=== PATIENT | female | born 1965 | race Native Hawaiian/Other Pacific Islander ===

== ENCOUNTER 2017-07-13 13:20 | Outpatient (CLI) | payer OTHER | END 2017-07-13 14:40 | disposition home or self-care (01) | LOC: MAMMO 13:20 | DX: R92.2 Inconclusive mammogram (principal) ==

== ENCOUNTER 2017-12-14 14:25 | Emergency (ER) | payer OTHER ==
[~2017-12-14] VITALS: Ht 162.6 cm; Wt 99.8 kg
[2017-12-14 15:11] LABS: PLATELET COUNT 366 K/uL (152-353)
[2017-12-14 15:20] LABS: POTASSIUM 3.7 mmol/L (3.6-5.2); SODIUM 131 mmol/L (136-145)
== END 2017-12-14 16:48 | disposition home or self-care (01) ==
LOC: ED 14:25
PROVIDERS: Family Medicine
DX: R07.89 Other chest pain (principal); T50.2X5A Adverse effect of carbonic-anhydrase inhibitors, benzothiadiazides and other diuretics, initial encounter; I10 Essential (primary) hypertension
CPT/HCPCS: 36415; 80053; 83735; 84100; 84439; 84443; 84484; 85027; 93005; 99283

== ENCOUNTER 2017-12-22 14:02 | Outpatient (CLI) | payer OTHER | END 2017-12-22 22:57 | disposition home or self-care (01) | LOC: RAD 14:02 | DX: Z12.31 Encounter for screening mammogram for malignant neoplasm of breast (principal) ==

== ENCOUNTER 2018-01-20 11:57 | Outpatient (CLI) | payer OTHER | END 2018-01-20 21:49 | disposition home or self-care (01) | LOC: LABW 11:57 | DX: N39.0 Urinary tract infection, site not specified (principal) | CPT/HCPCS: 81000; 87077; 87086; 87088; 87186 ==

== ENCOUNTER 2018-06-07 08:52 | Outpatient (CLI) | payer OTHER ==
[2018-06-07 09:20] LABS: PLATELET COUNT 308 K/uL (152-353)
[2018-06-07 09:56] LABS: POTASSIUM 4.6 mmol/L (3.6-5.2); SODIUM 142 mmol/L (136-145)
== END 2018-06-07 23:21 | disposition home or self-care (01) ==
LOC: LABW 08:52
PROVIDERS: Internal Medicine
DX: Z79.899 Other long term (current) drug therapy (principal); E78.5 Hyperlipidemia, unspecified; Z86.39 Personal history of other endocrine, nutritional and metabolic disease
CPT/HCPCS: 36415; 80053; 80061; 82550; 84439; 84443; 85027; 86140

== ENCOUNTER 2019-04-26 11:05 | Outpatient (CLI) | payer OTHER | END 2019-04-26 23:44 | disposition home or self-care (01) | LOC: MAMMO 11:05 | DX: Z12.31 Encounter for screening mammogram for malignant neoplasm of breast (principal) ==

== ENCOUNTER 2019-05-17 13:09 | Outpatient (CLI) | payer OTHER | END 2019-05-17 23:59 | LOC: RAD 13:09 | DX: M25.521 Pain in right elbow (principal) ==

== ENCOUNTER 2020-02-21 11:32 | Outpatient (CLI) | payer OTHER | END 2020-02-21 21:48 | disposition home or self-care (01) | LOC: RAD 11:32 | DX: R05 Cough (principal) ==

== ENCOUNTER 2020-02-22 08:06 | Outpatient (CLI) | payer OTHER ==
[2020-02-22 09:06] LABS: POTASSIUM 3.7 mmol/L (3.6-5.2)
[2020-02-22 09:50] LABS: PLATELET COUNT 336 K/uL (152-353)
== END 2020-02-22 20:05 | disposition home or self-care (01) ==
LOC: LABW 08:06 → US 08:06 → LABW 20:05
PROVIDERS: Internal Medicine
DX: R79.89 Other specified abnormal findings of blood chemistry (principal); I10 Essential (primary) hypertension; E03.9 Hypothyroidism, unspecified
CPT/HCPCS: 36415; 80053; 80061; 81000; 82306; 84439; 84443; 85027

== ENCOUNTER 2020-04-17 10:40 | Outpatient (CLI) | payer OTHER | END 2020-04-17 19:07 | disposition home or self-care (01) | LOC: RESP 10:40 | DX: R00.2 Palpitations (principal) | CPT/HCPCS: 93005; 93225 ==

== ENCOUNTER 2020-05-09 08:26 | Outpatient (CLI) | payer OTHER | END 2020-05-09 19:39 | disposition home or self-care (01) | LOC: MAMMO 08:26 | DX: Z12.31 Encounter for screening mammogram for malignant neoplasm of breast (principal); Z13.820 Encounter for screening for osteoporosis; N95.8 Other specified menopausal and perimenopausal disorders ==

== ENCOUNTER 2020-08-06 16:09 | Outpatient (CLI) | payer OTHER | END 2020-08-06 19:13 | disposition home or self-care (01) | LOC: LABW 16:09 | PROVIDERS: ATTEND Internal Medicine | DX: Z20.828 Contact with and (suspected) exposure to other viral communicable diseases (principal) | CPT/HCPCS: 36415; 86769 ==

== ENCOUNTER 2020-08-27 15:50 | Outpatient (CLI) | payer OTHER | END 2020-08-27 22:19 | disposition home or self-care (01) | LOC: RAD 15:50 | PROVIDERS: ATTEND Internal Medicine | DX: M79.671 Pain in right foot (principal) ==

== ENCOUNTER 2020-10-22 12:36 | Outpatient (CLI) | payer OTHER | END 2020-10-22 20:50 | disposition home or self-care (01) | LOC: EMG 12:36 | PROVIDERS: ATTEND Podiatrist Foot & Ankle Surgery | DX: G57.51 Tarsal tunnel syndrome, right lower limb (principal); G57.71 Causalgia of right lower limb | CPT/HCPCS: 95861; 95912 ==

== ENCOUNTER → 2020-11-07 10:57 | Outpatient (CLI) | payer OTHER ==
[2020-11-07 11:22] LABS: PLATELET COUNT 384 K/uL (152-353)
[2020-11-07 11:44] LABS: POTASSIUM 3.2 mmol/L (3.6-5.2)
== END | disposition home or self-care (01) ==
LOC: LABW 10:57
PROVIDERS: ATTEND Internal Medicine Endocrinology, Diabetes & Metabolism
DX: E88.81 Metabolic syndrome and other insulin resistance (principal)
CPT/HCPCS: 36415; 80053; 80061; 81000; 82306; 82607; 83036; 84443; 85027

== ENCOUNTER 2020-11-14 08:56 | Outpatient (CLI) | payer OTHER | END 2020-11-14 21:40 | disposition home or self-care (01) | LOC: MRI 08:56 | PROVIDERS: ATTEND Podiatrist | DX: M72.2 Plantar fascial fibromatosis (principal) ==

== ENCOUNTER 2020-11-21 07:30 | Outpatient (CLI) | payer OTHER ==
[~2020-11-21] VITALS: Ht 165.1 cm; Wt 92.1 kg
== END 2020-11-21 19:23 | disposition home or self-care (01) ==
LOC: DIABINF 07:30 → AHCSDI 08:15 → DIABINF 08:15
PROVIDERS: ATTEND Internal Medicine Endocrinology, Diabetes & Metabolism
DX: E88.81 Metabolic syndrome and other insulin resistance (principal); E78.2 Mixed hyperlipidemia; K21.9 Gastro-esophageal reflux disease without esophagitis; I10 Essential (primary) hypertension; M89.8X6 Other specified disorders of bone, lower leg
CPT/HCPCS: 82948; 96365; 96366; 96521; 99205; J1718; J1815

== ENCOUNTER 2020-11-23 07:50 | Outpatient (CLI) | payer OTHER ==
[~2020-11-23] VITALS: Ht 165.1 cm; Wt 92.1 kg
== END 2020-11-23 20:51 | disposition home or self-care (01) ==
LOC: DIABINF 07:50 → AHCSDI 08:15 → DIABINF 08:15
PROVIDERS: ATTEND Internal Medicine Endocrinology, Diabetes & Metabolism
DX: E88.81 Metabolic syndrome and other insulin resistance (principal); E78.2 Mixed hyperlipidemia; K21.9 Gastro-esophageal reflux disease without esophagitis; I10 Essential (primary) hypertension; M89.8X6 Other specified disorders of bone, lower leg
CPT/HCPCS: 82948; 96365; 96366; 96521; 99214; J1718; J1815

== ENCOUNTER 2020-11-28 07:33 | Outpatient (CLI) | payer OTHER ==
[~2020-11-28] VITALS: Ht 165.1 cm; Wt 92.1 kg
== END 2020-11-28 21:03 | disposition home or self-care (01) ==
LOC: DIABINF 07:33 → AHCSDI 08:15 → DIABINF 21:03
PROVIDERS: ATTEND Internal Medicine Endocrinology, Diabetes & Metabolism
DX: E88.81 Metabolic syndrome and other insulin resistance (principal); E78.2 Mixed hyperlipidemia; K21.9 Gastro-esophageal reflux disease without esophagitis; I10 Essential (primary) hypertension; M89.8X6 Other specified disorders of bone, lower leg; E03.8 Other specified hypothyroidism; J30.2 Other seasonal allergic rhinitis
CPT/HCPCS: 82948; 96365; 96366; 96521; 99214; J1718; J1815

== ENCOUNTER 2020-11-30 07:46 | Outpatient (CLI) | payer OTHER ==
[~2020-11-30] VITALS: Ht 165.1 cm; Wt 92.1 kg
== END 2020-11-30 21:10 | disposition home or self-care (01) ==
LOC: DIABINF 07:46
PROVIDERS: ATTEND Internal Medicine Endocrinology, Diabetes & Metabolism
DX: E88.81 Metabolic syndrome and other insulin resistance (principal); E78.2 Mixed hyperlipidemia; K21.9 Gastro-esophageal reflux disease without esophagitis; I10 Essential (primary) hypertension; M89.8X6 Other specified disorders of bone, lower leg; E03.8 Other specified hypothyroidism; J30.2 Other seasonal allergic rhinitis
CPT/HCPCS: 82948; 96365; 96366; 96521; 99214; J1718; J1815

== ENCOUNTER 2020-12-05 07:22 | Outpatient (CLI) | payer OTHER ==
[~2020-12-05] VITALS: Ht 165.1 cm; Wt 92.1 kg
== END 2020-12-05 19:27 | disposition home or self-care (01) ==
LOC: DIABINF 07:22
PROVIDERS: ATTEND Internal Medicine Endocrinology, Diabetes & Metabolism
DX: E88.81 Metabolic syndrome and other insulin resistance (principal); E78.2 Mixed hyperlipidemia; K21.9 Gastro-esophageal reflux disease without esophagitis; I10 Essential (primary) hypertension; M89.8X6 Other specified disorders of bone, lower leg; E03.8 Other specified hypothyroidism; J30.2 Other seasonal allergic rhinitis
CPT/HCPCS: 82948; 96365; 96366; 96521; 99213; J1718; J1815

== ENCOUNTER 2020-12-12 07:48 | Outpatient (CLI) | payer OTHER ==
[~2020-12-12] VITALS: Ht 162.6 cm; Wt 92.1 kg
== END 2020-12-12 22:02 | disposition home or self-care (01) ==
LOC: DIABINF 07:48
PROVIDERS: ATTEND Internal Medicine Endocrinology, Diabetes & Metabolism
DX: E88.81 Metabolic syndrome and other insulin resistance (principal); E78.2 Mixed hyperlipidemia; K21.9 Gastro-esophageal reflux disease without esophagitis; I10 Essential (primary) hypertension; M89.8X6 Other specified disorders of bone, lower leg; E03.8 Other specified hypothyroidism; J30.1 Allergic rhinitis due to pollen
CPT/HCPCS: 82948; 96365; 96366; 96521; 99214; J1718; J1815

== ENCOUNTER 2020-12-19 07:45 | Outpatient (CLI) | payer OTHER ==
[~2020-12-19] VITALS: Ht 165.1 cm; Wt 92.1 kg
== END 2020-12-19 21:52 | disposition home or self-care (01) ==
LOC: DIABINF 07:45
PROVIDERS: ATTEND Internal Medicine Endocrinology, Diabetes & Metabolism
DX: E88.81 Metabolic syndrome and other insulin resistance (principal); R73.03 Prediabetes; E78.2 Mixed hyperlipidemia; K21.9 Gastro-esophageal reflux disease without esophagitis; I10 Essential (primary) hypertension; M79.671 Pain in right foot; E03.8 Other specified hypothyroidism; J30.2 Other seasonal allergic rhinitis
CPT/HCPCS: 82948; 96365; 96366; 96521; 99213; J1718; J1815

== ENCOUNTER 2020-12-26 07:56 | Outpatient (CLI) | payer OTHER ==
[~2020-12-26] VITALS: Ht 157.5 cm; Wt 91.6 kg
== END 2020-12-26 22:35 | disposition home or self-care (01) ==
LOC: DIABINF 07:56
PROVIDERS: ATTEND Internal Medicine Endocrinology, Diabetes & Metabolism
DX: E88.81 Metabolic syndrome and other insulin resistance (principal); R73.03 Prediabetes; E78.2 Mixed hyperlipidemia; K21.9 Gastro-esophageal reflux disease without esophagitis; I10 Essential (primary) hypertension; M79.671 Pain in right foot; E03.8 Other specified hypothyroidism; J30.2 Other seasonal allergic rhinitis
CPT/HCPCS: 82948; 96365; 96366; 96521; 99213; J1718; J1815

== ENCOUNTER 2021-01-02 07:44 | Outpatient (CLI) | payer OTHER ==
[~2021-01-02] VITALS: Ht 165.1 cm; Wt 92.1 kg
== END 2021-01-02 19:58 | disposition home or self-care (01) ==
LOC: DIABINF 07:44
PROVIDERS: ATTEND Internal Medicine Endocrinology, Diabetes & Metabolism
DX: E88.81 Metabolic syndrome and other insulin resistance (principal); R73.03 Prediabetes; E78.2 Mixed hyperlipidemia; K21.9 Gastro-esophageal reflux disease without esophagitis; I10 Essential (primary) hypertension; M79.671 Pain in right foot; E03.8 Other specified hypothyroidism; J30.2 Other seasonal allergic rhinitis
CPT/HCPCS: 82948; 96365; 96366; 96521; 99213; J1718; J1815

== ENCOUNTER 2021-01-16 07:37 | Outpatient (CLI) | payer OTHER ==
[~2021-01-16] VITALS: Ht 165.1 cm; Wt 92.1 kg
== END 2021-01-16 21:12 | disposition home or self-care (01) ==
LOC: DIABINF 07:37
PROVIDERS: ATTEND Internal Medicine Endocrinology, Diabetes & Metabolism
DX: E88.81 Metabolic syndrome and other insulin resistance (principal); R73.03 Prediabetes; E78.2 Mixed hyperlipidemia; K21.9 Gastro-esophageal reflux disease without esophagitis; I10 Essential (primary) hypertension; M79.671 Pain in right foot; E03.8 Other specified hypothyroidism; J30.2 Other seasonal allergic rhinitis
CPT/HCPCS: 82948; 96365; 96366; 96521; 99214; J1718; J1815

== ENCOUNTER 2021-02-01 07:31 | Outpatient (CLI) | payer OTHER ==
[~2021-02-01] VITALS: Ht 165.1 cm; Wt 92.1 kg
== END 2021-02-01 21:45 | disposition home or self-care (01) ==
LOC: DIABINF 07:31
PROVIDERS: ATTEND Nurse Practitioner
DX: E88.81 Metabolic syndrome and other insulin resistance (principal); R73.03 Prediabetes; E78.2 Mixed hyperlipidemia; K21.9 Gastro-esophageal reflux disease without esophagitis; I10 Essential (primary) hypertension; M79.671 Pain in right foot; E03.8 Other specified hypothyroidism; J30.2 Other seasonal allergic rhinitis
CPT/HCPCS: 82948; 96365; 96366; 96521; J1815; J1817

== ENCOUNTER 2021-02-06 12:29 | Outpatient (CLI) | payer OTHER ==
[~2021-02-06] VITALS: Ht 165.1 cm; Wt 92.1 kg
== END 2021-02-06 21:12 | disposition home or self-care (01) ==
LOC: DIABINF 12:29
PROVIDERS: ATTEND Nurse Practitioner
DX: E88.81 Metabolic syndrome and other insulin resistance (principal); R73.03 Prediabetes; E78.2 Mixed hyperlipidemia; K21.9 Gastro-esophageal reflux disease without esophagitis; I10 Essential (primary) hypertension; M79.671 Pain in right foot; E03.8 Other specified hypothyroidism; J30.2 Other seasonal allergic rhinitis; R23.4 Changes in skin texture
CPT/HCPCS: 82948; 96365; 96366; 96521; J1815; J1817

== ENCOUNTER 2021-06-27 13:52 | Outpatient (CLI) | payer OTHER | END 2021-06-27 18:00 | disposition home or self-care (01) | LOC: MRI 13:52 | PROVIDERS: ATTEND Orthopaedic Surgery | DX: M25.512 Pain in left shoulder (principal); M75.122 Complete rotator cuff tear or rupture of left shoulder, not specified as traumatic; M75.42 Impingement syndrome of left shoulder; M75.22 Bicipital tendinitis, left shoulder ==

== ENCOUNTER 2022-04-11 10:31 | Outpatient (CLI) | payer OTHER | END 2022-04-11 20:52 | disposition home or self-care (01) | LOC: MRI 10:31 | PROVIDERS: ATTEND Internal Medicine | DX: R51.9 Headache, unspecified (principal) | CPT/HCPCS: 36415; 82565; 84520; A9576 ==

== ENCOUNTER 2022-05-16 13:48 | Outpatient (CLI) | payer OTHER | END 2022-05-16 19:11 | disposition home or self-care (01) | LOC: MRI 13:48 | PROVIDERS: ATTEND Physician Assistant | DX: M53.82 Other specified dorsopathies, cervical region (principal); R20.0 Anesthesia of skin; R20.2 Paresthesia of skin; M54.81 Occipital neuralgia ==

== ENCOUNTER 2022-08-18 14:31 | Outpatient (CLI) | payer OTHER | END 2022-08-18 20:32 | disposition home or self-care (01) | LOC: RAD 14:31 | PROVIDERS: ATTEND Internal Medicine | DX: R09.1 Pleurisy (principal) ==

== ENCOUNTER 2022-08-19 15:31 | Outpatient (CLI) | payer OTHER | END 2022-08-19 20:18 | disposition home or self-care (01) | LOC: CT 15:31 | PROVIDERS: ATTEND Internal Medicine | DX: R09.1 Pleurisy (principal) ==

== ENCOUNTER 2023-01-28 12:14 | Outpatient (CLI) | payer OTHER ==
[2023-01-28 13:13] LABS: PLATELET COUNT 383 K/uL (152-353)
== END 2023-01-28 19:12 | disposition home or self-care (01) ==
LOC: LAB 12:14
PROVIDERS: ATTEND Internal Medicine
DX: Z00.00 Encounter for general adult medical examination without abnormal findings (principal); Z78.0 Asymptomatic menopausal state
CPT/HCPCS: 80053; 80061; 81002; 82306; 84439; 84443; 85027

== ENCOUNTER 2023-02-03 08:48 | Outpatient (CLI) | payer OTHER | END 2023-02-03 18:59 | disposition home or self-care (01) | LOC: RAD 08:48 | PROVIDERS: ATTEND Internal Medicine | DX: Z78.0 Asymptomatic menopausal state (principal); Z12.31 Encounter for screening mammogram for malignant neoplasm of breast ==

== ENCOUNTER 2023-02-16 12:05 | Outpatient (CLI) | payer OTHER | END 2023-02-16 19:08 | disposition home or self-care (01) | LOC: LAB 12:05 | PROVIDERS: ATTEND Internal Medicine | DX: R31.9 Hematuria, unspecified (principal) | CPT/HCPCS: 87077; 87086; 87088; 87186 ==

== ENCOUNTER 2023-03-02 09:45 | Outpatient (CLI) | payer OTHER ==
[2023-03-02 10:16] LABS: PLATELET COUNT 385 K/uL (152-353)
== END 2023-03-02 19:22 | disposition home or self-care (01) ==
LOC: LABW 09:45
PROVIDERS: ATTEND Internal Medicine
DX: D72.828 Other elevated white blood cell count (principal)
CPT/HCPCS: 36415; 85027